=== PATIENT | male | born 1930 | race Caucasian/White ===

== ENCOUNTER 2021-03-12 11:14 | Inpatient (IN) | payer MEDICARE, OTHER ==
[~2021-03-12 11:14] MED LIST: Potassium Chloride 20 MEQ TAB PO SCH
[2021-03-12 12:05] LABS: #Eosinphils 0.2 thou/uL (0.0-0.7); #Lymphocytes 1.2 thou/uL (1.20-3.40); #Monocytes 0.5 thou/uL (0.11-0.59); #Neutrophils 3.2 thou/uL (1.40-6.50); %Basophils 0.5 % (0.0-1.0); %Eosinophils 4.4 % (0.0-10.0); %Lymphocytes 22.6 % (21.0-51.0); %Monocytes 10.5 % (0.0-10.0); Hemoglobin 11.2 g/dL (14.0-18.0); Mean Corpuscular HGB CONC 32.8 g/dL (32.0-36.0); Mean Corpuscular Hemoglobin 28.1 pg (27.0-31.0); Mean Corpuscular Volume 85.7 fL (78.0-98.0); Mean Platelet Volume 7.9 fL (7.4-10.4); Platelet Count 172 thou/uL (130-400); RBC Distribution Width 16.3 % (11.5-14.5); Red Blood Cell (RBC) Count 3.98 mill/uL (4.70-6.10); White Blood Cell (WBC) Count 5.2 thou/uL (4.8-10.8)
[2021-03-12 12:27] LABS: ALT (SGPT) 20 U/L (8-55); AST (SGOT) 21 U/L (5-34); Albumin 4.1 g/dL (3.4-4.8); Alkaline Phosphatase 68 U/L (40-110); Anion Gap 12 mmol/L (10-20); BUN (Urea Nitrogen) 24 mg/dL (8.4-25.7); Bilirubin, Total 0.6 mg/dL (0.2-1.2); Calc. Creatinine Clearance 0 mL/min (70-130); Carbon Dioxide 26 mmol/L (23-31); Chloride 107 mmol/L (98-107); Globulin 2.3 g/dL (2.4-3.5); Glucose 112 mg/dL (83-110); Potassium 4.5 mmol/L (3.5-5.1); Protein, Total 6.4 g/dL (5.8-8.1); Sodium 140 mmol/L (136-145)
[2021-03-12] MEDS ORDERED: Senokot S 8.6-50 MG TAB PO PRN (15:03)
[2021-03-12] MEDS ORDERED: Ondansetron ODT 4 MG TAB PO PRN (15:03)
[2021-03-12] MEDS ORDERED: Acetaminophen 325 MG TAB PO PRN (15:03)
[2021-03-12] MEDS ORDERED: Electrolyte Replacement Protocol 1 EACH FS SCH (15:15)
[2021-03-12 15:30] LABS: Troponin I 0.021 ng/mL (< 0.028)
[2021-03-12 15:52] LABS: Magnesium 2.2 mg/dL (1.6-2.6)
[2021-03-12] MEDS ORDERED: Aspirin 81 mg Enteric Coated Tablet PO SCH (16:00)
[2021-03-12] MEDS ORDERED: Enoxaparin Sodium 30 MG/0.3 ML SYRINGE SC SCH (16:00)
[2021-03-12] MEDS ORDERED: Furosemide 40 MG/4 ML VIAL SLOW IVP SCH (16:00)
[2021-03-12] MEDS ORDERED: DULoxetine 60 MG CAP PO SCH (16:15)
[2021-03-12 16:17] LABS: SARS-CoV-2 NAA Rapid Test Not Detected (NotDetected)
[2021-03-12] MEDS ORDERED: Carvedilol 3.125 MG TAB PO SCH (17:00)
[2021-03-12 17:51] VITALS: BMI 25.7
[2021-03-12 18:53] LABS: Troponin I 0.016 ng/mL (< 0.028)
[2021-03-12] MEDS ORDERED: Mirtazapine 15 MG TAB PO SCH (21:00)
[2021-03-12] MEDS ORDERED: Atorvastatin Calcium 20 MG TAB PO SCH (21:00)
[2021-03-13 05:29] LABS: #Eosinphils 0.2 thou/uL (0.0-0.7); #Lymphocytes 1.3 thou/uL (1.20-3.40); #Monocytes 0.5 thou/uL (0.11-0.59); #Neutrophils 2.6 thou/uL (1.40-6.50); %Basophils 0.1 % (0.0-1.0); %Eosinophils 4.6 % (0.0-10.0); %Lymphocytes 27.5 % (21.0-51.0); %Monocytes 10.7 % (0.0-10.0); %Neutrophils 57.1 % (42.0-75.0); Hemoglobin 10.4 g/dL (14.0-18.0); Mean Corpuscular HGB CONC 32.6 g/dL (32.0-36.0); Mean Corpuscular Hemoglobin 27.8 pg (27.0-31.0); Mean Corpuscular Volume 85.4 fL (78.0-98.0); Mean Platelet Volume 7.8 fL (7.4-10.4); Platelet Count 161 thou/uL (130-400); RBC Distribution Width 16.4 % (11.5-14.5); Red Blood Cell (RBC) Count 3.74 mill/uL (4.70-6.10); White Blood Cell (WBC) Count 4.6 thou/uL (4.8-10.8)
[2021-03-13 05:34] LABS: Hemoglobin A1c 5.5 % (4.0-6.0)
[2021-03-13 05:49] LABS: Anion Gap 11 mmol/L (10-20); BUN (Urea Nitrogen) 22 mg/dL (8.4-25.7); Calc. Creatinine Clearance 45 mL/min (70-130); Calcium 8.8 mg/dL (7.8-10.44); Carbon Dioxide 25 mmol/L (23-31); Cardiac Risk 2.5 (Less than 4.5); Chloride 107 mmol/L (98-107); Cholesterol 131 mg/dl (< 200 Desired); Glucose 107 mg/dL (83-110); HDL Cholesterol 52 mg/dL (>60 Neg Risk); LDL Cholesterol, Calculated 64 mg/dL; Potassium 3.8 mmol/L (3.5-5.1); Sodium 139 mmol/L (136-145); Triglycerides 77 mg/dL (Less than 150)
[2021-03-13] MEDS ORDERED: Lorazepam 0.5 MG TAB PO PRN (07:19)
[2021-03-13] MEDS: DULoxetine 60 MG CAP PO SCH (08:46)
[2021-03-13] MEDS: Potassium Chloride 20 MEQ TAB PO SCH (08:46)
[2021-03-13] MEDS: Finasteride 5 MG TAB PO SCH (08:46)
[2021-03-13] MEDS: Aspirin 81 mg Enteric Coated Tablet PO SCH (08:47)
[2021-03-13] MEDS: Famotidine 20 MG TAB PO SCH (08:47)
[2021-03-13] MEDS: Furosemide 40 MG/4 ML VIAL SLOW IVP SCH (08:48)
[2021-03-13] MEDS: Enoxaparin Sodium 30 MG/0.3 ML SYRINGE SC SCH ×2 (08:56→08:59)
[2021-03-13] MEDS ORDERED: Finasteride 5 MG TAB PO SCH (09:00)
[2021-03-13] MEDS ORDERED: DULoxetine 60 MG CAP PO SCH (09:00)
[2021-03-13] MEDS ORDERED: Carvedilol 3.125 MG TAB PO SCH ×2 (09:00→18:45)
[2021-03-13] MEDS: Doxazosin Mesylate 4 MG TAB PO SCH (12:34)
[2021-03-13] MEDS ORDERED: Atorvastatin Calcium 20 MG TAB PO SCH (21:00)
[2021-03-13] MEDS ORDERED: Mirtazapine 15 MG TAB PO SCH (21:00)
[2021-03-14 05:04] LABS: #Eosinphils 0.2 thou/uL (0.0-0.7); #Lymphocytes 1.1 thou/uL (1.20-3.40); #Monocytes 0.5 thou/uL (0.11-0.59); #Neutrophils 2.4 thou/uL (1.40-6.50); %Basophils 0.5 % (0.0-1.0); %Eosinophils 5.2 % (0.0-10.0); %Lymphocytes 25.2 % (21.0-51.0); %Monocytes 12.1 % (0.0-10.0); Hemoglobin 10.3 g/dL (14.0-18.0); Mean Corpuscular HGB CONC 32.7 g/dL (32.0-36.0); Mean Corpuscular Hemoglobin 27.8 pg (27.0-31.0); Mean Platelet Volume 8.3 fL (7.4-10.4); Platelet Count 160 thou/uL (130-400); RBC Distribution Width 16.4 % (11.5-14.5); Red Blood Cell (RBC) Count 3.71 mill/uL (4.70-6.10); White Blood Cell (WBC) Count 4.2 thou/uL (4.8-10.8)
[2021-03-14 05:33] LABS: Anion Gap 11 mmol/L (10-20); BUN (Urea Nitrogen) 30 mg/dL (8.4-25.7); Calc. Creatinine Clearance 43 mL/min (70-130); Calcium 8.7 mg/dL (7.8-10.44); Carbon Dioxide 25 mmol/L (23-31); Chloride 109 mmol/L (98-107); Glucose 102 mg/dL (83-110); Potassium 3.6 mmol/L (3.5-5.1); Sodium 141 mmol/L (136-145)
[2021-03-14] MEDS ORDERED: Carvedilol 3.125 MG TAB PO SCH (08:00)
[2021-03-14 08:03] VITALS: BP 127/77; TEMP 97.8
[2021-03-14 09:01] LABS: Magnesium 2.1 mg/dL (1.6-2.6)
[2021-03-14] MEDS: Doxazosin Mesylate 4 MG TAB PO SCH (09:42)
[2021-03-14] MEDS: Finasteride 5 MG TAB PO SCH (09:43)
[2021-03-14] MEDS: DULoxetine 60 MG CAP PO SCH (09:43)
[2021-03-14] MEDS: Aspirin 81 mg Enteric Coated Tablet PO SCH (09:43)
[2021-03-14] MEDS: Famotidine 20 MG TAB PO SCH (09:43)
[2021-03-14] MEDS: Potassium Chloride 20 MEQ TAB PO SCH (09:44)
[2021-03-14] MEDS: Enoxaparin Sodium 30 MG/0.3 ML SYRINGE SC SCH (09:45)
[2021-03-14] MEDS: Furosemide 40 MG/4 ML VIAL SLOW IVP SCH (09:45)
== END 2021-03-14 10:53 | disposition home health service (06) | DRG 291 ==
LOC: ERS 11:14 → 2SW 14:17 → OBSVTOIN 03-13 12:48
PROVIDERS: ADMIT Hospitalist; ATTEND Internal Medicine
DX: I13.0 Hypertensive heart and chronic kidney disease with heart failure and stage 1 through stage 4 chronic kidney disease, or unspecified chronic kidney disease (principal); I50.43 Acute on chronic combined systolic (congestive) and diastolic (congestive) heart failure; N17.9 Acute kidney failure, unspecified; Z20.822 Contact with and (suspected) exposure to COVID-19; E78.5 Hyperlipidemia, unspecified; I25.10 Atherosclerotic heart disease of native coronary artery without angina pectoris; N40.0 Benign prostatic hyperplasia without lower urinary tract symptoms; F41.9 Anxiety disorder, unspecified; N18.30 Chronic kidney disease, stage 3 unspecified; D53.9 Nutritional anemia, unspecified; K21.9 Gastro-esophageal reflux disease without esophagitis; F32.A Depression, unspecified; I42.8 Other cardiomyopathies; I48.0 Paroxysmal atrial fibrillation; Z95.5 Presence of coronary angioplasty implant and graft; Z88.0 Allergy status to penicillin; Z95.0 Presence of cardiac pacemaker; Z82.3 Family history of stroke; Z83.79 Family history of other diseases of the digestive system; Z87.891 Personal history of nicotine dependence; Z79.899 Other long term (current) drug therapy
CPT/HCPCS: 36415; 71045; 80048; 80053; 80061; 83036; 83735; 83880; 84443; 84484; 85025; 93005; 93798; 96372; 96374; 96376; G0378; J1650; J1940; U0002